=== PATIENT | male | born 1980 | race Caucasian/White ===

== ENCOUNTER 2019-04-21 11:54 | Emergency (ER) | payer BC ==
--- NOTE | 2019-04-21 12:02 | UC ---
Complaint Male HPI - HPI Summary HPI Summary: 39 yo male presents with LEFT testicular pain. He tells me that about 3 days ago he noticed some mild left testicular pain at the top of the testicle. Has not gotten better or worse since that time. Pain is a mild ache at rest, but sharp and tender when touched. He states he had a pain similar to this about 20 years ago and was dx'd with a "testicle infection" and anbx cleared it up - no problems since. and states is monogamous with with no concerns for STDs today. Denies fevers, chills, abdominal pain, n/v, back pain, dysuria, hematuria, or penile drainage. - History of Current Complaint Stated Complaint: PERSONAL Time Seen by Provider: 04/21/19 12:01 Hx Obtained From: Patient Onset/Duration: Gradual Onset Timing: Constant Severity Initially: Moderate Severity Currently: Moderate Pain Intensity: 6 Pain Scale Used: 0-10 Numeric - Allergies/Home Medications Allergies/Adverse Reactions: Allergies Allergy/AdvReac Type Severity Reaction Status Date / Time No Known Allergies Allergy Verified 04/21/19 12:06 Home Medications: Home Medications atenoloL [Atenolol] 1 tab PO DAILY 04/21/19 [History Confirmed 04/21/19] PMH/Surg Hx/FS Hx/Imm Hx Cardiovascular History: Hypertension - Surgical History Surgical History: None - Family History Known Family History: Positive: None - Social History Occupation: Employed Full-time Lives: With Family Alcohol Use: Occasionally Substance Use Type: None Smoking Status (MU): Current Every Day Smoker Type: Cigarettes Amount Used/How Often: 1 PPD Review of Systems All Other Systems Reviewed And Are Negative: No Constitutional: Positive: Negative Skin: Positive: Negative Respiratory: Positive: Negative Cardiovascular: Positive: Negative Gastrointestinal: Positive: Negative Genitourinary: Positive: Other - Testicular pain Neurovascular: Positive: Negative Neurological: Positive: Negative Psychological: Positive: Negative Physical Exam - Summary Physical Exam Summary: GENERAL: NAD. WDWN. No pain distress. SKIN: No rashes, sores, lesions, or open wounds. NECK: Supple. Nontender. No lymphadenopathy. CHEST: CTAB. No r/r/w. No accessory muscle use. Breathing comfortably and in no distress. CV: RRR. Pulses intact. Cap refill <2seconds ABDOMEN: Soft. NTTP. No distention or guarding. Bowel sounds present NEURO: Alert. PSYCH: Age appropriate behavior. Triage Information Reviewed: Yes Vital Signs: Vital Signs: Temp Pulse Resp BP Pulse Ox 97.7 F 70 18 143/94 97 04/21/19 12:02 04/21/19 12:02 04/21/19 12:02 04/21/19 12:02 04/21/19 12:02 Laboratory Tests 04/21/19 12:18 POC Urine Color Yellow POC Urine Clarity Clear POC Urine pH 7.0 POC Ur Specif [place] 1.020 POC Urine Protein Trace POC Ur Glucose (UA) Negative POC Urine Ketones Negative POC Urine Blood Negative POC Urine Nitrite Negative POC Urine Bilirubin Negative POC Urine Urobilinogen 0.2 POC U Leukocyte Esteras Trace Vital Signs Reviewed: Yes Male Genital Exam: Positive: No Hernia, Epididymal Tenderness - LEFT, Testicular Tenderness (L) - LEFT, Other - No inguinal LAD. Negative: Erythema, Inguinal Tenderness, Lesions, Scrotum Tenderness (R), Scrotum Tenderness (L), Testicular Tenderness (R), Urethral Discharge Diagnostics - Radiology Testicular Radiology Interpretation Completed By: Radiologist Summary of Radiographic Findings: IMPRESSION: 1. Sonographic findings could be consistent with left epididymitis in the correct clinical setting. 2. Small bilateral hydroceles that could be secondary to epididymitis. Complaint Male Course/Dx - Course Course Of Treatment: US as above. Agree with epididymitis. Low risk for STDs, but will test for GC/C. Rx for bactrim. Advised to f/u with Urology if symptoms do not resolve or if they return after being treated. - Differential Dx/Diagnosis Provider Diagnosis: Left epididymitis Discharge ED - Sign-Out/Discharge Documenting (check all that apply): Patient Departure All imaging exams completed and their final reports reviewed: Yes - Discharge Plan Condition: Stable Disposition: HOME Prescriptions: Sulfamethox/Trimethoprim DS* [Bactrim DS 800/160 TAB*] 1 tab PO BID #20 tab Patient Education Materials: Epididymitis (ED) Referrals: Felipe Huerta MD [Primary Care Provider] - Jose Luis Huizar MD [Medical Doctor] - If Needed Additional Instructions: If you develop a fever, shortness of breath, chest pain, new or worsening symptoms - please call your PCP or go to the ED immediately. Your blood pressure was high at todays visit. Please see your primary provider within 4 weeks for recheck and re-evaluation. If your pain does not improve or returns after treatment - please call Urology at the number below to schedule an appointment for further evaluation. - Billing Disposition and Condition Condition: STABLE Disposition: Home
[2019-04-21 12:06] VITALS: BP 143/94
[2019-04-22 12:32] LABS: Chlamydia trachomatis NAA Negative (Negative); Neisseria gonorrhoeae (GC) NAA Negative (Negative)
== END 2019-04-21 13:33 | disposition home or self-care (01) ==
LOC: UCEAST 11:54
DX: N45.1 Epididymitis (principal); F17.210 Nicotine dependence, cigarettes, uncomplicated; I10 Essential (primary) hypertension
CPT/HCPCS: 76870; 81003; 87086; 87491; 87591; 99202; G0463